=== PATIENT | female | born 1980 | race Caucasian/White ===

== ENCOUNTER → 2020-06-04 | Outpatient (CLI) | payer OTHER | END | disposition home or self-care (01) | LOC: PPH VACUNA 06:58 | DX: Z23 Encounter for immunization (principal) ==

== ENCOUNTER 2020-08-11 11:28 | Emergency (ER) | payer OTHER ==
[~2020-08-11] VITALS: Ht 165.1 cm; Wt 72.6 kg
[2020-08-11] MEDS ORDERED: KETO10TA2 PO (12:38)
[2020-08-11] MEDS ORDERED: ZANAFLEX4 M1 PO (12:38)
== END 2020-08-11 12:51 | disposition home or self-care (01) ==
LOC: ER 11:28
DX: M54.5 Low back pain (principal)

== ENCOUNTER 2020-11-02 09:22 | Emergency (ER) | payer OTHER ==
[~2020-11-02] VITALS: Ht 165.1 cm; Wt 88.5 kg
[~2020-11-02 09:22] MED LIST: KETO10TA2 PO; ZANAFLEX4 M1 PO
[2020-11-02] MEDS ORDERED: ZANAFLEX4 M1 PO (10:18)
[2020-11-02] MEDS ORDERED: KETO10TA2 PO (10:18)
== END 2020-11-02 10:21 | disposition home or self-care (01) ==
LOC: ER 09:22
DX: S39.012A Strain of muscle, fascia and tendon of lower back, initial encounter (principal); M54.5 Low back pain; X50.0XXA Overexertion from strenuous movement or load, initial encounter; Y93.89 Activity, other specified; Y92.89 Other specified places as the place of occurrence of the external cause; Y99.8 Other external cause status

== ENCOUNTER 2021-08-10 09:43 | Emergency (ER) | payer OTHER ==
[~2021-08-10] VITALS: Ht 165.1 cm; Wt 86.2 kg
[2021-08-10] MEDS ORDERED: METHOCARBAMOL750 MG PO (11:18)
[2021-08-10] MEDS ORDERED: DICLOFENAC POTA50 MG PO (11:18)
== END 2021-08-10 11:57 ==
LOC: ER 09:43
DX: S33.5XXA Sprain of ligaments of lumbar spine, initial encounter (principal); M54.50 Low back pain, unspecified

== ENCOUNTER 2021-10-10 10:00 | Emergency (ER) | payer OTHER ==
[~2021-10-10] VITALS: Ht 165.1 cm; Wt 86.2 kg
[~2021-10-10 10:00] MED LIST changes: +DICLOFENAC POTA50 MG PO; +METHOCARBAMOL750 MG PO
[2021-10-11] MEDS ORDERED: OSEL75CA PO (14:58)
== END 2021-10-10 14:43 | disposition home or self-care (01) ==
LOC: ER 10:00
DX: J31.0 Chronic rhinitis (principal); Z20.822 Contact with and (suspected) exposure to COVID-19

== ENCOUNTER 2021-10-11 12:13 | Emergency (ER) | payer OTHER ==
[~2021-10-11] VITALS: Ht 165.1 cm; Wt 86.2 kg
[2021-10-11] MEDS ORDERED: OSEL75CA PO (14:58)
== END 2021-10-11 15:43 | disposition home or self-care (01) ==
LOC: ER 12:13
DX: B34.9 Viral infection, unspecified (principal)

== ENCOUNTER 2022-03-09 10:20 | Outpatient (CLI) | payer OTHER ==
[~2022-03-09 10:20] MED LIST changes: +OSEL75CA PO
== END 2022-03-09 10:25 | disposition home or self-care (01) ==
LOC: PPH VACUNA 10:20
PROVIDERS: ATTEND Emergency Medicine Pediatric Emergency Medicine
DX: Z23 Encounter for immunization (principal)

== ENCOUNTER 2022-06-18 17:25 | Emergency (ER) | payer OTHER ==
[~2022-06-18] VITALS: Ht 165.1 cm; Wt 97.5 kg
== END 2022-06-18 22:42 | disposition home or self-care (01) ==
LOC: ER 17:25
DX: O03.9 Complete or unspecified spontaneous abortion without complication (principal)

== ENCOUNTER 2022-08-26 08:51 | Emergency (ER) | payer OTHER ==
[~2022-08-26] VITALS: Ht 165.1 cm; Wt 108.4 kg
== END 2022-08-26 12:07 | disposition home or self-care (01) ==
LOC: ER 08:51
DX: K29.70 Gastritis, unspecified, without bleeding (principal); Z20.822 Contact with and (suspected) exposure to COVID-19

== ENCOUNTER 2022-12-07 15:25 | Outpatient (CLI) | payer OTHER ==
[2022-12-07] MEDS ORDERED: PROAIR RESPICL90 MCG IH (21:30)
[2022-12-07] MEDS ORDERED: TUSNEL LIQUID178 ML PO (21:30)
[2022-12-07] MEDS ORDERED: PAXLOVID 300-11 EACH PO (21:30)
[2022-12-07] MEDS ORDERED: MEDROLPACK PO (21:30)
== END 2022-12-07 15:26 | disposition home or self-care (01) ==
LOC: LAB 15:25
PROVIDERS: ATTEND Preventive Medicine Occupational Medicine
DX: Z02.1 Encounter for pre-employment examination (principal)

== ENCOUNTER 2022-12-07 20:00 | Emergency (ER) | payer OTHER ==
[~2022-12-07] VITALS: Ht 165.1 cm; Wt 86.2 kg
[2022-12-07] MEDS ORDERED: PAXLOVID 300-11 EACH PO (21:30)
[2022-12-07] MEDS ORDERED: MEDROLPACK PO (21:30)
[2022-12-07] MEDS ORDERED: TUSNEL LIQUID178 ML PO (21:30)
[2022-12-07] MEDS ORDERED: PROAIR RESPICL90 MCG IH (21:30)
== END 2022-12-07 21:51 | disposition home or self-care (01) ==
LOC: ER 20:00
DX: U07.1 COVID-19 (principal)

== ENCOUNTER → 2023-03-17 | Outpatient (CLI) | payer OTHER ==
[~2023-03-17] MED LIST changes: +MEDROLPACK PO; +PAXLOVID 300-11 EACH PO; +PROAIR RESPICL90 MCG IH; +TUSNEL LIQUID178 ML PO
== END | disposition home or self-care (01) ==
LOC: PPH VACUNA 14:30
PROVIDERS: ATTEND Emergency Medicine Pediatric Emergency Medicine
DX: Z23 Encounter for immunization (principal)
CPT/HCPCS: 90686; G0008

== ENCOUNTER 2023-05-19 10:48 | Emergency (ER) | payer OTHER ==
[~2023-05-19] VITALS: Ht 165.1 cm; Wt 86.2 kg
[2023-05-19] MEDS ORDERED: MINOCYCLINE HCL75 M1 (10:58)
[2023-05-19 11:53] LABS: URINE APPEARANCE Clear; URINE BILIRRUBIN Negative (NEGATIVE); URINE BLOOD Negative; URINE COLOR Yellow; URINE GLUCOSE Negative (NEGATIVE); URINE LEUKOCYTE Negative; URINE NITRATE Negative; URINE PROTEIN Negative (NEGATIVE); URINE UROBILINOGEN 0.2 E.U./dl
[2023-05-19 11:54] LABS: URINE BACTERIA 661.3 uL (0.0-1933); URINE EPITHELIAL CELLS 103.6 uL (0.0-38.8); URINE RBC 22.5 uL (0.0-20.8); URINE WBC 3.7 uL (0.0-23.2)
== END 2023-05-19 12:37 | disposition home or self-care (01) ==
LOC: ER 10:48
PROVIDERS: Emergency Medicine
DX: N39.0 Urinary tract infection, site not specified (principal)

== ENCOUNTER 2023-07-19 14:15 | Emergency (ER) | payer OTHER ==
[~2023-07-19] VITALS: Ht 165.1 cm; Wt 86.2 kg
[~2023-07-19 14:15] MED LIST changes: +MINOCYCLINE HCL75 M1
[2023-07-19 15:05] LABS: HEMATOCRIT 39.4 % (36.0-45.00); HEMOGLOBIN 13.4 g/dL (12.0-15.00); MEAN CELL VOLUME 86.5 fL (80.00-100.00); MEAN CORPUSCULAR HEMOGLOBIN 29.3 pg (27.00-32.0); MEAN CORPUSCULAR HGB CONC 33.9 g/dl (32.0-36.0); PLATELET COUNT 283 K/uL (150-450); RED BLOOD COUNT 4.56 M/uL (4.00-6.00); RED CELL DISTRIBUTION WIDTH 13.6 % (11.5-14.5)
[2023-07-19 15:30] LABS: ALBUMIN 3.9 gm/dL (3.4-5.0); BILIRUBIN TOTAL 0.34 mg/dL (0.3-1.2); CALCIUM 8.6 mg/dL (8.5-10.1); CREATININE SERUM 1.01 mg/dL (0.55-1.02); GFR 59.82; POTASSIUM 3.62 mEq/L (3.5-5.1); TOTAL PROTEIN 7.9 gm/dL (6.4-8.2)
[2023-07-19] MEDS ORDERED: MEDROLPACK PO (15:56)
[2023-07-19] MEDS ORDERED: TUSNEL LIQUID178 ML PO (15:56)
[2023-07-19] MEDS ORDERED: ALBUTEROL2.5 MG/3 M IH (15:56)
== END 2023-07-19 15:57 | disposition home or self-care (01) ==
LOC: ER 14:15
PROVIDERS: General Practice
DX: J45.901 Unspecified asthma with (acute) exacerbation (principal); Z20.822 Contact with and (suspected) exposure to COVID-19

== ENCOUNTER → 2024-04-19 | Emergency (ER) | payer OTHER ==
[~2024-04-19] VITALS: Ht 167.6 cm; Wt 86.2 kg
[~2024-04-19] MED LIST changes: +0.9 % SODIUM CHLORIDE 1,000 ML IV SCH; +ALBUTEROL2.5 MG/3 M IH; +FAMOTIDINE/PF 20 MG in 0.9 % SODIUM CHLORIDE 8 ML IV PUSH STA; +LORazepam 2 MG/ML VIAL IV ONE
[2024-04-19 23:06] LABS: HEMATOCRIT 39.3 % (36.0-45.00); HEMOGLOBIN 13.3 g/dL (12.0-15.00); MEAN CELL VOLUME 86.7 fL (80.00-100.00); MEAN CORPUSCULAR HEMOGLOBIN 29.4 pg (27.00-32.0); MEAN CORPUSCULAR HGB CONC 33.9 g/dl (32.0-36.0); PLATELET COUNT 314 K/uL (150-450); RED BLOOD COUNT 4.54 M/uL (4.00-6.00); RED CELL DISTRIBUTION WIDTH 14.3 % (11.5-14.5)
[2024-04-19 23:44] LABS: ALBUMIN 3.8 gm/dL (3.4-5.0); BILIRUBIN TOTAL 0.59 mg/dL (0.3-1.2); CALCIUM 8.7 mg/dL (8.5-10.1); CREATININE SERUM 0.66 mg/dL (0.55-1.02); GFR 97.29; GLOBULINA 3.7 G/DL (2.4-3.5); POTASSIUM 3.47 mEq/L (3.5-5.1); TOTAL PROTEIN 7.5 gm/dL (6.4-8.2)
[2024-04-20 00:11] LABS: PH,URINE 5.5 (5.0-8.0); URINE APPEARANCE Turbid; URINE BILIRRUBIN Negative (NEGATIVE); URINE BLOOD Negative; URINE COLOR Yellow; URINE GLUCOSE Negative (NEGATIVE); URINE KETONE 15 (NEGATIVE); URINE LEUKOCYTE Negative; URINE NITRATE Negative; URINE PROTEIN Negative (NEGATIVE)
[2024-04-20 00:14] LABS: URINE BACTERIA 3261.9 uL (0.0-1933); URINE EPITHELIAL CELLS 59.3 uL (0.0-38.8); URINE RBC 19.5 uL (0.0-20.8); URINE WBC 41.8 uL (0.0-23.2)
[2024-04-20 00:22] LABS: URINE CAST 0.15 uL (0.0-1.40)
[2024-04-20 00:23] LABS: COCAINE NEGATIVE (NEGATIVE); METHADONE NEGATIVE (NEGATIVE); OPIATES NEGATIVE (NEGATIVE); THC ( Cannabinoids) NEGATIVE (NEGATIVE)
== END | disposition designated cancer center or children's hospital (05) ==
LOC: ER 21:34
PROVIDERS: General Practice
DX: R45.851 Suicidal ideations (principal); F41.8 Other specified anxiety disorders

== ENCOUNTER 2024-04-29 13:30 | Outpatient (CLI) | payer OTHER ==
[~2024-04-29 13:30] MED LIST changes: -0.9 % SODIUM CHLORIDE 1,000 ML IV SCH; -FAMOTIDINE/PF 20 MG in 0.9 % SODIUM CHLORIDE 8 ML IV PUSH STA; -LORazepam 2 MG/ML VIAL IV ONE
== END 2024-04-29 13:40 | disposition home or self-care (01) ==
LOC: PPH VACUNA 13:30
PROVIDERS: ATTEND Emergency Medicine Pediatric Emergency Medicine
DX: Z23 Encounter for immunization (principal)

== ENCOUNTER 2024-07-09 00:16 | Emergency (ER) | payer OTHER ==
[~2024-07-09] VITALS: Ht 165.1 cm; Wt 86.2 kg
[2024-07-09] MEDS ORDERED: DEXAMETHASONE SODIUM PHOSPHATE 4 MG/ML VIAL IM STA (00:49)
[2024-07-09] MEDS ORDERED: ORPHENADRINE CITRATE 30 MG/ML AMPUL IM STA (00:49)
[2024-07-09] MEDS ORDERED: ACETAMINOPHEN 500 MG GEL..CAP PO STA (00:51)
[2024-07-09] MEDS ORDERED: ACETAMINOPHEN 500 MG GEL..CAP PO ONE (00:53)
[2024-07-09] MEDS ORDERED: ORPHENADRINE CITRATE 30 MG/ML AMPUL ONE (00:53)
[2024-07-09] MEDS ORDERED: DEXAMETHASONE SODIUM PHOSPHATE 4 MG/ML VIAL ONE (00:54)
[2024-07-09 01:55] LABS: PH,URINE 5.5 (5.0-8.0); URINE APPEARANCE Cloudy; URINE BILIRRUBIN Negative (NEGATIVE); URINE BLOOD Negative; URINE COLOR Yellow; URINE GLUCOSE Negative (NEGATIVE); URINE KETONE Negative (NEGATIVE); URINE LEUKOCYTE Small; URINE NITRATE Negative; URINE PROTEIN Negative (NEGATIVE); URINE UROBILINOGEN 0.2 E.U./dl
[2024-07-09 01:58] LABS: URINE RBC 9.5 uL (0.0-20.8); URINE WBC 255.2 uL (0.0-23.2)
[2024-07-09 01:59] LABS: HEMOGLOBIN 13.8 g/dL (12.0-15.00); MEAN CELL VOLUME 88.8 fL (80.00-100.00); MEAN CORPUSCULAR HEMOGLOBIN 29.8 pg (27.00-32.0); MEAN CORPUSCULAR HGB CONC 33.5 g/dl (32.0-36.0); PLATELET COUNT 329 K/uL (150-450); RED BLOOD COUNT 4.62 M/uL (4.00-6.00); RED CELL DISTRIBUTION WIDTH 13.7 % (11.5-14.5)
[2024-07-09 03:03] LABS: URINE BACTERIA > 9821.5 uL (0.0-1933); URINE EPITHELIAL CELLS > 201.7 uL (0.0-38.8)
[2024-07-09] MEDS ORDERED: CLINDAMYCIN PHOSPHATE 150 MG/ML (900mg) ONE (04:12)
[2024-07-09] MEDS ORDERED: CIPROFLOXACIN IN 5 % DEXTROSE 400 MG/200 ML PIGGYBAG IV ONE (04:13)
[2024-07-10] MEDS ORDERED: PEPCID AC20 MG PO (17:16)
[2024-07-10] MEDS ORDERED: NORFLEX100MG PO (17:16)
[2024-07-10] MEDS ORDERED: PYRIDIUM DS200 MG PO (17:16)
[2024-07-10] MEDS ORDERED: BACTRIM DS TAB1 EACH PO (17:16)
== END 2024-07-09 04:29 | disposition home or self-care (01) ==
LOC: ER 00:16
DX: M54.50 Low back pain, unspecified (principal); Z88.6 Allergy status to analgesic agent; Z88.8 Allergy status to other drugs, medicaments and biological substances

== ENCOUNTER 2024-07-10 12:15 | Emergency (ER) | payer OTHER ==
[~2024-07-10] VITALS: Ht 165.1 cm; Wt 86.2 kg
[2024-07-10 12:17] VITALS: BP 136/72; O2SAT 99
[2024-07-10] MEDS ORDERED: FAMOtidine 10 MG/ML (4ML VIAL) IV ONE (12:45)
[2024-07-10] MEDS ORDERED: 0.9 % SODIUM CHLORIDE 1,000 ML IV ONE (12:45)
[2024-07-10] MEDS ORDERED: MEPERIDINE HCL/PF 50 MG/ML VIAL IM ONE (12:45)
[2024-07-10] MEDS ORDERED: FAMOTIDINE/PF 20 MG/2 ML VIAL ONE (13:09)
[2024-07-10 13:22] LABS: HEMOGLOBIN 13.9 g/dL (12.0-15.00); MEAN CELL VOLUME 89.8 fL (80.00-100.00); MEAN CORPUSCULAR HEMOGLOBIN 29.7 pg (27.00-32.0); PLATELET COUNT 338 K/uL (150-450); RED BLOOD COUNT 4.67 M/uL (4.00-6.00)
[2024-07-10 13:46] LABS: PH,URINE 5.5 (5.0-8.0); URINE APPEARANCE Clear; URINE BILIRRUBIN Negative (NEGATIVE); URINE BLOOD Negative; URINE COLOR Yellow; URINE GLUCOSE Negative (NEGATIVE); URINE KETONE Negative (NEGATIVE); URINE LEUKOCYTE Negative; URINE NITRATE Negative; URINE PROTEIN Negative (NEGATIVE); URINE UROBILINOGEN 0.2 E.U./dl
[2024-07-10 13:48] LABS: URINE BACTERIA 2561.7 uL (0.0-1933); URINE EPITHELIAL CELLS 198.4 uL (0.0-38.8); URINE RBC 13.2 uL (0.0-20.8); URINE WBC 54.1 uL (0.0-23.2)
[2024-07-10 13:59] LABS: URINE CAST 1.32 uL (0.0-1.40)
[2024-07-10 14:01] LABS: ALBUMIN 3.9 gm/dL (3.4-5.0); BILIRUBIN TOTAL 0.36 mg/dL (0.3-1.2); CALCIUM 9.2 mg/dL (8.5-10.1); CREATININE SERUM 0.88 mg/dL (0.55-1.02); GFR 69.8; GLOBULINA 4.3 G/DL (2.4-3.5); POTASSIUM 3.51 mEq/L (3.5-5.1); TOTAL PROTEIN 8.2 gm/dL (6.4-8.2)
[2024-07-10] MEDS ORDERED: TAMSULOSIN HCL 0.4 MG CAP PO ONE ×2 (15:14→15:15)
[2024-07-10] MEDS ORDERED: CEFTRIAXONE SODIUM 1,000 MG VIAL IV ONE (15:15)
[2024-07-10] MEDS ORDERED: CEFTRIAXONE SODIUM 1,000 MG VIAL ONE (15:15)
[2024-07-10] MEDS ORDERED: NORFLEX100MG PO (17:16)
[2024-07-10] MEDS ORDERED: BACTRIM DS TAB1 EACH PO (17:16)
[2024-07-10] MEDS ORDERED: PYRIDIUM DS200 MG PO (17:16)
[2024-07-10] MEDS ORDERED: PEPCID AC20 MG PO (17:16)
== END 2024-07-10 18:04 | disposition home or self-care (01) ==
LOC: ER 12:17
PROVIDERS: Emergency Medicine
DX: R10.32 Left lower quadrant pain (principal); N39.0 Urinary tract infection, site not specified; Z88.6 Allergy status to analgesic agent; J45.909 Unspecified asthma, uncomplicated; N83.291 Other ovarian cyst, right side

== ENCOUNTER 2024-08-09 05:48 | Emergency (ER) | payer OTHER ==
[~2024-08-09] VITALS: Ht 165.1 cm; Wt 86.2 kg
[~2024-08-09 05:48] MED LIST changes: +BACTRIM DS TAB1 EACH PO; +NORFLEX100MG PO; +PEPCID AC20 MG PO; +PYRIDIUM DS200 MG PO
[2024-08-09] MEDS ORDERED: DEXAMETHASONE SODIUM PHOSPHATE 4 MG/ML VIAL IV STA (07:20)
[2024-08-09] MEDS ORDERED: MEPERIDINE HCL/PF 50 MG/ML VIAL IM STA (07:21)
[2024-08-09] MEDS ORDERED: PROMETHAZINE HCL 25 MG/ML AMPUL IM STA (07:22)
[2024-08-09] MEDS ORDERED: ACETAMINOPHEN 500 MG GEL..CAP PO STA (07:22)
[2024-08-09] MEDS ORDERED: PROMETHAZINE HCL 25 MG/ML AMPUL ONE (07:31)
[2024-08-09] MEDS ORDERED: ACETAMINOPHEN 500 MG GEL..CAP PO ONE (07:31)
[2024-08-09] MEDS ORDERED: DEXAMETHASONE SODIUM PHOSPHATE 4 MG/ML VIAL ONE (07:32)
== END 2024-08-09 13:53 | disposition home or self-care (01) ==
LOC: ER 05:50
DX: M54.42 Lumbago with sciatica, left side (principal); Z88.6 Allergy status to analgesic agent

== ENCOUNTER 2024-09-10 22:57 | Emergency (ER) | payer OTHER ==
[~2024-09-10] VITALS: Ht 165.1 cm; Wt 86.2 kg
[2024-09-11] MEDS ORDERED: BACLOFEN10 MG PO (00:22)
[2024-09-11] MEDS ORDERED: GABAPENTIN100 M2 PO (00:22)
== END 2024-09-11 00:53 | disposition home or self-care (01) ==
LOC: ER 22:57
DX: M54.16 Radiculopathy, lumbar region (principal); Z88.6 Allergy status to analgesic agent; Z88.8 Allergy status to other drugs, medicaments and biological substances

== ENCOUNTER 2024-11-09 14:52 | Emergency (ER) | payer OTHER ==
[~2024-11-09] VITALS: Ht 165.1 cm; Wt 86.2 kg
[~2024-11-09 14:52] MED LIST changes: +BACLOFEN10 MG PO; +GABAPENTIN100 M2 PO
[2024-11-09] MEDS ORDERED: FAMOtidine 10 MG/ML (4ML VIAL) IV ONE (16:30)
[2024-11-09] MEDS ORDERED: ORPHENADRINE CITRATE 30 MG/ML AMPUL IV ONE (16:30)
[2024-11-09] MEDS ORDERED: 0.9 % SODIUM CHLORIDE 1,000 ML IV ONE (16:30)
[2024-11-09] MEDS ORDERED: ONDANSETRON HCL 2 MG/ML VIAL IV ONE (16:30)
[2024-11-09 16:50] LABS: BASO % 0.2 % (0.1-1.2); EOS # 0.01 (0.04-0.54); EOS % 0.1 % (0.7-7.0); HEMATOCRIT 44.3 % (34.1-44.9); HEMOGLOBIN 14.5 g/dL (11.2-15.7); LYMPH % 6.1 % (19.3-53.1); MEAN CORPUSCULAR HEMOGLOBIN 28.7 pg (25.6-32.2); MONO # 0.23 (0.24-0.82); MONO % 2.8 % (4.7-12.5); NEUT # 7.46 (1.56-6.13); NEUT % 90.6 % (34.0-71.1); PLATELET COUNT 381 K/uL (163-369); RED BLOOD COUNT 5.06 M/uL (3.93-5.22); RED CELL DISTRIBUTION WIDTH 13.4 % (11.6-14.4)
[2024-11-09 17:30] LABS: URINE APPEARANCE Clear; URINE BILIRRUBIN Negative (NEGATIVE); URINE BLOOD Negative; URINE COLOR Yellow; URINE GLUCOSE Negative (NEGATIVE); URINE KETONE Negative (NEGATIVE); URINE LEUKOCYTE Negative; URINE NITRATE Negative; URINE PROTEIN Negative (NEGATIVE); URINE UROBILINOGEN 0.2 E.U./dl
[2024-11-09 17:34] LABS: URINE BACTERIA 6429.2 uL (0.0-1933); URINE CAST 1.47 uL (0.0-1.40); URINE RBC 8.5 uL (0.0-20.8); URINE WBC 51.4 uL (0.0-23.2)
[2024-11-09 17:38] LABS: INR 1.08; PARTIAL THROMBOPLASTIN TIME 29.1 SECONDS (22.0-34.0); PROTHROMBIN TIME 11.7 SECONDS (9.0-11.5)
[2024-11-09 17:44] LABS: ALBUMIN 3.9 gm/dL (3.4-5.0); BILIRUBIN TOTAL 0.8 mg/dL (0.3-1.2); CALCIUM 8.5 mg/dL (8.5-10.1); CREATININE SERUM 0.6 mg/dL (0.55-1.02); GFR 108.6; GLOBULINA 3.8 G/DL (2.4-3.5); POTASSIUM 4.16 mEq/L (3.5-5.1); TOTAL PROTEIN 7.7 gm/dL (6.4-8.2)
[2024-11-09] MEDS ORDERED: PROTONIX40 MG PO (20:27)
[2024-11-09] MEDS ORDERED: PROBIOTIC1 EAC2 PO (20:27)
[2024-11-09] MEDS ORDERED: ZOFRAN8 MG PO (20:27)
[2024-11-09] MEDS ORDERED: LEVSIN/SL0.125 MG SL (20:27)
== END 2024-11-09 20:34 | disposition home or self-care (01) ==
LOC: ER 14:52
PROVIDERS: General Practice
DX: R10.84 Generalized abdominal pain (principal); D25.9 Leiomyoma of uterus, unspecified; N83.202 Unspecified ovarian cyst, left side; K57.30 Diverticulosis of large intestine without perforation or abscess without bleeding; Z88.6 Allergy status to analgesic agent; Z88.8 Allergy status to other drugs, medicaments and biological substances; Z87.09 Personal history of other diseases of the respiratory system

== ENCOUNTER 2025-02-23 21:43 | Emergency (ER) | payer OTHER ==
[~2025-02-23] VITALS: Ht 165.1 cm; Wt 86.2 kg
[~2025-02-23 21:43] MED LIST changes: +LEVSIN/SL0.125 MG SL; +PROBIOTIC1 EAC2 PO; +PROTONIX40 MG PO; +ZOFRAN8 MG PO
[2025-02-23] MEDS ORDERED: ORPHENADRINE CITRATE 30 MG/ML AMPUL ONE (22:07)
[2025-02-23] MEDS ORDERED: DEXAMETHASONE SODIUM PHOSPHATE 4 MG/ML VIAL ONE (22:07)
[2025-02-23] MEDS ORDERED: ORPHENADRINE CITRATE 30 MG/ML AMPUL IM ONE (22:15)
[2025-02-23] MEDS ORDERED: DEXAMETHASONE SODIUM PHOSPHATE 4 MG/ML VIAL IM ONE (22:15)
== END 2025-02-23 22:45 | disposition home or self-care (01) ==
LOC: ER 21:43
DX: M54.89 Other dorsalgia (principal); M54.16 Radiculopathy, lumbar region; Z88.6 Allergy status to analgesic agent; Z88.8 Allergy status to other drugs, medicaments and biological substances

== ENCOUNTER 2025-05-16 11:18 | Emergency (ER) | payer OTHER ==
[2025-05-16] MEDS ORDERED: MOUNJARO2.5 MG/0.5 (11:22)
[2025-05-16] MEDS ORDERED: METHYLPREDNISOLONE SOD SUCC 125 MG VIAL ONE (11:30)
[2025-05-16] MEDS ORDERED: CEFTRIAXONE SODIUM 1,000 MG VIAL ONE (11:30)
[2025-05-16] MEDS ORDERED: ACETAMINOPHEN 500 MG GEL..CAP PO ONE (11:30)
[2025-05-16] MEDS ORDERED: ALBUTEROL SULFATE 3 ML/2.5 MG AMPUL.NEB IH ONE (11:31)
[2025-05-16] MEDS ORDERED: DEXAMETHASONE SODIUM PHOSPHATE 4 MG/ML VIAL ONE (11:31)
== END 2025-05-16 11:21 | disposition left against medical advice (07) ==
LOC: ER 11:18
DX: Z53.21 Procedure and treatment not carried out due to patient leaving prior to being seen by health care provider (principal)